=== PATIENT | female | born 1945 | race Caucasian/White ===

== ENCOUNTER → 2017-08-30 | Outpatient (CLI) | payer MEDICARE ==
--- NOTE | 2017-09-01 10:30 | MM ---
Reason for exam: screening (asymptomatic). Last mammogram was performed 2 years and 7 months ago. History: Patient is postmenopausal. Benign excisional biopsy of the left breast, 1996. Took estrogen for 6 months beginning at age 40. Physical Findings: A clinical breast exam by your physician is recommended on an annual basis and results should be correlated with mammographic findings. MG 3D Screening Mammo W/Cad Bilateral CC and MLO view(s) were taken. Prior study comparison: January 21, 2015, left breast MG 3d follow up no charge LT. December 29, 2014, bilateral MG 3d screening mammo w/cad. There are scattered fibroglandular densities. Previous mammotome biopsy in the left breast. No significant changes when compared with prior studies. ASSESSMENT: Negative, BI-RAD 1 RECOMMENDATION: Routine screening mammogram of both breasts in 1 year.
== END | disposition home or self-care (01) ==
LOC: RADMAMWWP 11:11
PROVIDERS: ATTEND Internal Medicine
DX: Z12.31 Encounter for screening mammogram for malignant neoplasm of breast (principal)
CPT/HCPCS: 77063; 77067

== ENCOUNTER 2019-08-21 13:44 | Observation (INO) | payer MEDICARE ==
--- NOTE | 2019-08-21 15:24 | ED ---
General Adult HPI - General Chief complaint: Neuro Symptoms/Deficit Stated complaint: left side face/jaw pain Time Seen by Provider: 08/21/19 14:53 Source: patient, RN notes reviewed, old records reviewed Mode of arrival: ambulatory Limitations: no limitations - History of Present Illness Initial comments: 73 yo presented for evaluation of left-sided facial pain. Patient has history of trigeminal neuralgia she has had worsening pain over the past 3 weeks. She was previously on 100 mg of carbamazepine twice daily and has increased this to 300 mg twice daily. Additionally she is on baclofen which was prescribed by her primary care physician and is uncertain of this dose per she states this is made her quite sleepy. Patient has normal bilateral hand tremor over the past several weeks as well. No focal numbness or weakness. She was sent in by her primary care physician for possible MRI of the brain. - Related Data Home Medications Medication Instructions Recorded Confirmed Amitriptyline HCl 10 mg PO DAILY 01/08/14 01/14/14 Aspirin 81 mg PO DAILY 01/08/14 01/14/14 Jozwxin-Hesh-Tnac [id number] 1 each PO DIRECTED PRN 01/08/14 01/14/14 [Excedrin] Atorvastatin [Lipitor] 20 mg PO DAILY 01/08/14 01/14/14 Calcium Carbonate [Tums] 500 mg PO DIRECTED PRN 01/08/14 01/14/14 Docusate Sodium [Stool Softener] 100 mg PO DAILY PRN 01/08/14 01/14/14 Ergocalciferol [Vitamin D2 50,000 unit PO DIRECTED 01/08/14 01/14/14 (DRISDOL)] Fluticasone/Salmeterol [Advair 2 puff INHALATION BID 01/08/14 01/14/14 250-50 Diskus] Zafirlukast 20 mg PO BID 01/08/14 01/14/14 carBAMazepine [Carbamazepine] 400 mg PO BID 01/08/14 01/14/14 Aspirin EC [Ecotrin] 325 mg PO ONCE 01/14/14 01/14/14 Previous Rx's Medication Instructions Recorded Atorvastatin [Lipitor] 40 mg PO DAILY #60 tab 01/15/14 Clopidogrel [Plavix] 75 mg PO DAILY #90 tab 01/15/14 Metoprolol Tartrate [Lopressor] 25 mg PO DAILY #180 tab 01/15/14 Nitroglycerin Sl Tabs [Nitrostat] 0.4 mg SUBLINGUAL Q5M PRN #25 tab 01/15/14 Oxymetazoline 0.05% Nasl Paulina 3 spray NASAL TID #1 bottle 06/24/14 [Afrin 0.05% Nasal Paulina] Allergies Allergy/AdvReac Type Severity Reaction Status Date / Time No Known Allergies Allergy Verified 08/21/19 14:27 Review of Systems ROS Statement: Those systems with pertinent positive or pertinent negative responses have been documented in the HPI. ROS Other: All systems not noted in ROS Statement are negative. Past Medical History Past Medical History: COPD, Hyperlipidemia, Hypertension, Neurologic Disorder History of Any Multi-Drug Resistant Organisms: None Reported Past Surgical History: Back Surgery, Heart Catheterization With Stent, Tubal Ligation Smoking Status: Never smoker Past Alcohol Use History: Rare Past Drug Use History: None Reported General Exam Limitations: no limitations General appearance: alert, in no apparent distress Head exam: Present: atraumatic, normocephalic Eye exam: Present: normal appearance, PERRL ENT exam: Present: normal exam Neck exam: Present: normal inspection. Absent: tenderness, meningismus Respiratory exam: Present: normal lung sounds bilaterally. Absent: respiratory distress, wheezes Cardiovascular Exam: Present: regular rate, normal rhythm GI/Abdominal exam: Present: soft. Absent: distended, tenderness, guarding Extremities exam: Present: normal inspection, normal capillary refill. Absent: pedal edema, calf tenderness Neurological exam: Present: alert, oriented X3, CN II-XII intact, normal gait. Absent: motor sensory deficit Psychiatric exam: Present: normal affect, normal mood Skin exam: Present: warm, dry, intact. Absent: cyanosis, diaphoretic Course Vital Signs 08/21/19 08/21/19 14:23 17:20 Temperature 98.2 F Pulse Rate 85 80 Respiratory 16 16 Rate Blood Pressure 167/86 167/74 O2 Sat by Pulse 98 99 Oximetry - Reevaluation(s) Reevaluation #1: 08/21/19 15:29 I did discuss this case with the patient's primary care physician Dr. Ramsey she has been treated trigeminal neuralgia but is concerned that the patient has had some mental status changes, increasing confusion and wishes the patient to be admitted for neurology consultation and further workup. EKG Findings - EKG Comments: EKG Findings:: EKG: Sinus rhythm with PVC, rate of 76, CA interval 162, QRS duration 80, QTC 441, no ST segment elevation. Medical Decision Making - Medical Decision Making 73-year-old female presenting for evaluation of altered mental status, worsening trigeminal neuralgia. I did discuss case with her primary care physician who wants her to be admitted for neurology evaluation. She has a nonfocal neurologic exam with stable vitals. She is alert and oriented at the time my evaluation. She has a normal CBC, normal CMP, head CT negative for acute intracranial pathology, no intracranial hemorrhage per chest x-ray negative for acute Norm pulmonary disease. Patient has been admitted to internal medicine with neurology on consult for further evaluation. - Lab Data Result diagrams: 08/21/19 15:15 08/21/19 15:15 Lab Results 08/21/19 08/21/19 08/21/19 Range/Units 15:15 15:15 15:15 WBC 6.2 (3.8-10.6) k/uL RBC 4.40 (3.80-5.40) m/uL Hgb 13.6 (11.4-16.0) gm/dL Hct 43.1 (34.0-46.0) % MCV 97.9 (80.0-100.0) fL MCH 30.9 (25.0-35.0) pg MCHC 31.6 (31.0-37.0) g/dL RDW 12.8 (11.5-15.5) % Plt Count 284 (150-450) k/uL Neutrophils % 66 % Lymphocytes % 19 % Monocytes % 8 % Eosinophils % 4 % Basophils % 1 % Neutrophils # 4.1 (1.3-7.7) k/uL Lymphocytes # 1.2 (1.0-4.8) k/uL Monocytes # 0.5 (0-1.0) k/uL Eosinophils # 0.3 (0-0.7) k/uL Basophils # 0.1 (0-0.2) k/uL PT (9.0-12.0) sec INR (<1.2) APTT (22.0-30.0) sec Sodium 132 L (137-145) mmol/L Potassium 4.1 (3.5-5.1) mmol/L Chloride 97 L (98-107) mmol/L Carbon Dioxide 29 (22-30) mmol/L Anion Gap 6 mmol/L BUN 10 (7-17) mg/dL Creatinine 0.64 (0.52-1.04) mg/dL Est GFR (CKD-EPI)AfAm >90 (>60 ml/min/1.73 sqM) Est GFR (CKD-EPI)NonAf 89 (>60 ml/min/1.73 sqM) Glucose 109 H (74-99) mg/dL Calcium 9.2 (8.4-10.2) mg/dL Total Bilirubin 0.3 (0.2-1.3) mg/dL AST 31 (14-36) U/L ALT 18 (4-34) U/L Alkaline Phosphatase 98 (38-126) U/L Total Creatine Kinase 38 (30-135) U/L CK-MB (CK-2) 0.7 (0.0-2.4) ng/mL CK-MB (CK-2) Rel Index 1.8 Troponin I <0.012 (0.000-0.034) ng/mL Total Protein 6.7 (6.3-8.2) g/dL Albumin 4.2 (3.5-5.0) g/dL 08/21/19 Range/Units 15:15 WBC (3.8-10.6) k/uL RBC (3.80-5.40) m/uL Hgb (11.4-16.0) gm/dL Hct (34.0-46.0) % MCV (80.0-100.0) fL MCH (25.0-35.0) pg MCHC (31.0-37.0) g/dL RDW (11.5-15.5) % Plt Count (150-450) k/uL Neutrophils % % Lymphocytes % % Monocytes % % Eosinophils % % Basophils % % Neutrophils # (1.3-7.7) k/uL Lymphocytes # (1.0-4.8) k/uL Monocytes # (0-1.0) k/uL Eosinophils # (0-0.7) k/uL Basophils # (0-0.2) k/uL PT 9.7 (9.0-12.0) sec INR 0.9 (<1.2) APTT 23.4 (22.0-30.0) sec Sodium (137-145) mmol/L Potassium (3.5-5.1) mmol/L Chloride (98-107) mmol/L Carbon Dioxide (22-30) mmol/L Anion Gap mmol/L BUN (7-17) mg/dL Creatinine (0.52-1.04) mg/dL Est GFR (CKD-EPI)AfAm (>60 ml/min/1.73 sqM) Est GFR (CKD-EPI)NonAf (>60 ml/min/1.73 sqM) Glucose (74-99) mg/dL Calcium (8.4-10.2) mg/dL Total Bilirubin (0.2-1.3) mg/dL AST (14-36) U/L ALT (4-34) U/L Alkaline Phosphatase (38-126) U/L Total Creatine Kinase (30-135) U/L CK-MB (CK-2) (0.0-2.4) ng/mL CK-MB (CK-2) Rel Index Troponin I (0.000-0.034) ng/mL Total Protein (6.3-8.2) g/dL Albumin (3.5-5.0) g/dL Disposition Clinical Impression: AMS (altered mental status) Disposition: ADMITTED IP TO THIS [facility] Condition: Stable Is patient prescribed a controlled substance at d/c from ED?: No Referrals: Rach Ramsey MD [Primary Care Provider] - 1-2 days Decision to Admit Reason: Admit from EC Decision Date: 08/21/19 Decision Time: 18:05
--- NOTE | 2019-08-21 15:44 | CT ---
EXAMINATION TYPE: CT brain wo con DATE OF EXAM: 08/21/2019 COMPARISON: None INDICATION: Left-sided facial pain DLP: 1186.4 mGycm, Automated exposure control for dose reduction was used. CONTRAST: None CT of the brain is performed utilizing 3 mm thick sections through the posterior fossa and 3 mm thick sections through the remaining calvarium. Study is performed within 24 hours of arrival to the hosp ital. No abnormal hyperdensity is present to suggest an acute intracranial hemorrhage. No mass lesion is evident. No acute infarcts are evident. Ventricles and sulci are slightly prominent for the patient age. Paranasal sinuses and mastoid air cells within the [id number] are clear. IMPRESSIONS: 1. Mild age-related atrophy
[2019-08-21 15:51] LABS: Basophils # (A) 0.1 k/uL (0-0.2); Basophils % (A) 1 %; Eosinophils # (A) 0.3 k/uL (0-0.7); Eosinophils % (A) 4 %; HCT 43.1 % (34.0-46.0); HGB 13.6 gm/dL (11.4-16.0); Lymphocytes # (A) 1.2 k/uL (1.0-4.8); Lymphocytes % (A) 19 %; MCH 30.9 pg (25.0-35.0); MCHC 31.6 g/dL (31.0-37.0); MCV 97.9 fL (80.0-100.0); Mean Platelet Volume 7.2; Monocytes # (A) 0.5 k/uL (0-1.0); Monocytes % (A) 8 %; Neutrophils # (A) 4.1 k/uL (1.3-7.7); Neutrophils % (A) 66 %; Platelet Count 284 k/uL (150-450); RDW 12.8 % (11.5-15.5); WBC 6.2 k/uL (3.8-10.6)
--- NOTE | 2019-08-21 15:55 | XR ---
EXAMINATION TYPE: XR chest 2V DATE OF EXAM: 08/21/2019 COMPARISON: Prior chest x-ray 11/28/2013 HISTORY: Left-sided face and jaw pain, left chest pain TECHNIQUE: Frontal and lateral views of the chest are obtained. FINDINGS: There is no focal air space opacity, pleural effusion, or pneumothorax seen. The cardiac silhouette size is stable, heart is borderline enlarged. There is eventration of the hemidiaphragms. Prominent lung volumes are present which may be indicative of underlying COPD. The osseous structure s are intact. IMPRESSION: No acute cardiopulmonary process.
[2019-08-21 15:57] LABS: ALT 18 U/L (4-34); AST 31 U/L (14-36); African American GFR (CKD) >90 (>60 ml/min/1.73 sqM); Albumin 4.2 g/dL (3.5-5.0); Alkaline Phosphatase 98 U/L (38-126); Anion Gap 6 mmol/L; Blood Urea Nitrogen 10 mg/dL (7-17); Calcium 9.2 mg/dL (8.4-10.2); Carbon Dioxide 29 mmol/L (22-30); Chloride 97 mmol/L (98-107); Creatine Kinase 38 U/L (30-135); Glucose 109 mg/dL (74-99); Non-African American GFR(CKD) 89 (>60 ml/min/1.73 sqM); Potassium 4.1 mmol/L (3.5-5.1); Sodium 132 mmol/L (137-145); Total Bilirubin 0.3 mg/dL (0.2-1.3); Total Protein 6.7 g/dL (6.3-8.2)
[2019-08-21 16:03] LABS: INR 0.9 (<1.2); Partial Thromboplastin Time 23.4 sec (22.0-30.0); Prothrombin Time 9.7 sec (9.0-12.0)
[2019-08-21 16:09] LABS: Creatine Kinase MB 0.7 ng/mL (0.0-2.4); Troponin I <0.012 ng/mL (0.000-0.034)
[2019-08-21 18:27] LABS: Appearance,Urine Clear (Clear); Bilirubin,Urine Negative (Negative); Blood,Urine Negative (Negative); Color,Urine Light Yellow; Glucose,Urine (UA) Negative (Negative); Ketones,Urine Negative (Negative); Leukocyte Esterase,Urine Negative (Negative); Nitrite,Urine Negative (Negative); Protein,Urine Negative (Negative); Specific Gravity,Urine 1.005 (1.001-1.035); Urobilinogen,Urine <2.0 mg/dL (<2.0)
[2019-08-21] MEDS ORDERED: ACETAMINOPHEN TAB 325 MG TAB PO PRN (23:12)
[2019-08-21] MEDS ORDERED: SODIUM CHLORIDE 0.9% 1,000 ML IV SCH (23:15)
--- NOTE | 2019-08-22 10:47 | P.CNNES ---
History of Present Illness Consult date: 08/22/19 Requesting physician: Christophe Mcmullen Reason for Consult: Altered mental status History of Present Illness: Patient is a 73-year-old female who has long-standing history of trigeminal neuralgia since 1998 when she was living in [place]. Patient at first was on Neurontin, then was switched to carbamazepine. Patient has been on carbamazepine 200 mg twice a day for number of years and her symptoms were in remission. Patient moved from [place] to [place] in 2004. She was able to slowly wean down dose to carbamazepine ER 100 mg twice a day which she has been also on for number of years. Patient sometimes would have mild numbness like sensation but no pain. She was doing fine until 3 weeks ago when she started having flareup of symptoms. The symptoms came on all of a sudden with full force. The symptoms involve the left lower jaw, and left side of the tongue. The main triggers include talking, eating and drinking and brushing teeth. Patient was seen by her primary physician, who increased the dose of carbamazepine to 200 mg twice a day. She stayed on it for a week and the symptoms were no better, she went up to the 100 mg twice a day, which she has been on for last 2 weeks. She feels the symptoms have improved, and symptoms are not constant, she can sleep without waking up with pain. Patient saw her primary physician, who recommended her to go to ER for neurological evaluation. CT head showed mild age-related atrophy. No acute process. Paranasal sinuses are clear. Chest x-ray showed no acute cardiopulmonary process. EKG shows sinus rhythm with frequent PVCs. Septal infarct, age undetermined. Patient's CBC is normal PT/PTT normal. Sodium 132 potassium 4.1, hepatic panel normal. UA negative. Review of Systems As per HPI. Otherwise completely unremarkable. Denies double vision, loss of vision. Denies hoarseness or throat dysphagia. No chest pain shortness of breath wheezing or cough. No abdominal pain. Patient does have some headaches off and on. She lately has been having some hoarse voice, has COPD. Past Medical History Past Medical History: COPD, Hyperlipidemia, Hypertension, Neurologic Disorder History of Any Multi-Drug Resistant Organisms: None Reported Past Surgical History: Back Surgery, Heart Catheterization With Stent, Tubal Ligation Additional Past Surgical History / Comment(s): breast biopsy Past Anesthesia/Blood Transfusion Reactions: No Reported Reaction Additional Past Anesthesia/Blood Transfusion Reaction / Comment(s): never had a blood transfusion Date of Last Stent Placement:: 2013 Past Psychological History: No Psychological Hx Reported Smoking Status: Never smoker Past Alcohol Use History: Rare Past Drug Use History: None Reported Medications and Allergies Home Medications Medication Instructions Recorded Confirmed Type Amitriptyline HCl 20 mg PO HS 01/08/14 08/21/19 History Aspirin 81 mg PO HS 01/08/14 08/21/19 History Ergocalciferol [Vitamin D2 50,000 unit PO Q28D 01/08/14 08/21/19 History (DRISDOL)] Fluticasone/Salmeterol [Advair 2 puff INHALATION RT-BID 01/08/14 08/21/19 History 250-50 Diskus] Zafirlukast 20 mg PO BID 01/08/14 08/21/19 History Nitroglycerin Sl Tabs [Nitrostat] 0.4 mg SUBLINGUAL Q5M PRN #25 tab 01/15/14 0 08/21/19 Rx [id number]-Ixxs-Ixxx [id number] 1 tab PO DAILY PRN 08/21/19 08/21/19 History [Excedrin] Baclofen 10 mg PO DAILY 08/21/19 08/21/19 History Metoprolol Tartrate [Lopressor] 25 mg PO BID 08/21/19 08/21/19 History Multivitamins, Thera [Multivitamin 1 tab PO DAILY 08/21/19 08/21/19 History (formulary)] Rosuvastatin [Crestor] 10 mg PO Q48H 08/21/19 08/21/19 History carBAMazepine [carBAMazepine ER] 300 mg PO BID 08/22/19 08/22/19 History Allergies Allergy/AdvReac Type Severity Reaction Status Date / Time ciprofloxacin [From Cipro] Allergy Sleepiness Verified 08/21/19 19:05 Physical Examination - Vital Signs Vital Signs: Vital Signs Temp Pulse Pulse Resp BP BP Pulse Ox 08/22/19 08:00 97.6 F 70 18 140/70 100 08/22/19 03:57 97.8 F 66 12 110/72 97 08/22/19 00:21 97.5 F L 68 12 117/66 94 L 08/21/19 21:23 98.1 F 73 12 145/71 97 08/21/19 20:19 98.2 F 80 16 154/80 99 08/21/19 17:20 80 16 167/74 99 08/21/19 14:23 98.2 F 85 16 167/86 98 Intake and Output 08/21/19 08/22/19 08/22/19 22:59 06:59 14:59 Other: Voiding Method Toilet Toilet Weight 51.71 kg On examination patient is an elderly female, in no acute distress. Patient is alert awake oriented to time place and person. Patient knows that it is August 2019 and that she is in [facility] in [place]. Speech and language functions, recent and remote memory normal. Attention and concentration fund of knowledge is adequate. On cranial nerve examination pupils are round and reactive to light, visual cesar are full on confrontation. Extraocular muscles are intact with no nystagmus. Face is symmetric, tongue protrudes the midline. Palatal elevation and sensation normal. Hearing and shoulder shrug normal. Examination of oral cavity revealed some dental filling in the left lower molar teeth but does not appear inflamed. On muscle strength testing there is no pronator drift and the strength is normal in arms and legs distally and proximally. Reflexes are 1+ to 2, and plantars are downgoing. Sensory touch is equal. No ataxia for [id number] testing. Tone and bulk of muscles normal. Gait deferred. No obvious bruit or murmur, peripheral pulses present. Abdomen soft nontender. Chest clear Results - Laboratory Findings CBC and BMP: 08/21/19 15:15 08/21/19 15:15 Abnormal Lab Findings: Abnormal Labs 08/21/19 15:15 Sodium 132 L Chloride 97 L Glucose 109 H Assessment and Plan Assessment: * Acute flareup of trigeminal neuralgia involving the left mandibular division, for last 3 weeks. Patient does have long-standing history of trigeminal neuralgia, was in remission, until recent breakthrough pain. Plan: * Patient is currently taking carbamazepine ER 300 mg twice a day. Her symptoms have improved, but not resolved yet. Still gets symptoms with prolonged talking, eating or drinking. Patient was recommended to change carbamazepine ER to 200 mg 3 times a day. After her symptoms comes in remission, she can slowly wean down to 200 mg twice a day. * We will check Tegretol level to rule out toxicity. * Suggest follow-up with neurologist locally, to manage her trigeminal neuralgia. * Computed tomography scan of the head was reviewed, shows no abnormality. No evidence of paranasal sinus disease. * Neurologically cleared for discharge.
[2019-08-22] MEDS ORDERED: NITROGLYCERIN SL TABS 0.4 MG TAB SUBLINGUAL PRN (11:45)
--- NOTE | 2019-08-22 16:38 | P.HPIM ---
History of Present Illness Patient developed pleasant 73-year-old the female was admitted for altered in the status. Patient has history of present urology which is in remission and the patient started having trigeminal neuralgia symptoms with severe pain tin gling numbness in the V3 segment of trigeminal now. Patient the had uncontrollable pain because of which patient was given given Flexeril for is a for muscle relaxation patient was having some tingling numbness in one set of the tongue as well. Triggers include eating drinking and brushing teeth. After using Flexeril patient the was bit lethargic which is not an expected of although patient is alert oriented 3 when I interviewed the patient patient is not confused. Patient was evaluated by neurology. Patient is on carbamazepine 200 twice a day. As carbamazepine is not a long-acting medication neurology is recommending long-acting Was obtained to take 3 times a day to have better neuropathic pain control. Neurology is not recommending any more evaluation with MRI. Patient will be referred to a neurologist as an outpatient. Patient has a Tegretol levels of 7.5 without any signs or symptoms of Tegretol toxicity. Review of Systems REVIEW OF SYSTEMS: CONSTITUTIONAL: No fever, no malaise, no fatigue. HEENT: No recent visual problems or hearing problems. Denied any sore throat. CARDIOVASCULAR: No chest pain, orthopnea, PND, no palpitations, no syncope. PULMONARY: No shortness of breath, no cough, no hemoptysis. GASTROINTESTINAL: No diarrhea, no nausea, no vomiting, no abdominal pain. NEUROLOGICAL: No headaches, no weakness, no numbness. HEMATOLOGICAL: Denies any bleeding or petechiae. GENITOURINARY: Denies any burning micturition, frequency, or urgency. MUSCULOSKELETAL/RHEUMATOLOGICAL: Denies any joint pain, swelling, or any muscle pain. ENDOCRINE: Denies any polyuria or polydipsia. The rest of the 14-point review of systems is negative. Past Medical History Past Medical History: COPD, Hyperlipidemia, Hypertension, Neurologic Disorder History of Any Multi-Drug Resistant Organisms: None Reported Past Surgical History: Back Surgery, Heart Catheterization With Stent, Tubal Ligation Additional Past Surgical History / Comment(s): breast biopsy Past Anesthesia/Blood Transfusion Reactions: No Reported Reaction Additional Past Anesthesia/Blood Transfusion Reaction / Comment(s): never had a blood transfusion Date of Last Stent Placement:: 2013 Past Psychological History: No Psychological Hx Reported Smoking Status: Never smoker Past Alcohol Use History: Rare Past Drug Use History: None Reported Medications and Allergies Home Medications Medication Instructions Recorded Confirmed Type Amitriptyline HCl 20 mg PO HS 01/08/14 08/21/19 History Aspirin 81 mg PO HS 01/08/14 08/21/19 History Ergocalciferol [Vitamin D2 50,000 unit PO Q28D 01/08/14 08/21/19 History (DRISDOL)] Fluticasone/Salmeterol [Advair 2 puff INHALATION RT-BID 01/08/14 08/21/19 History 250-50 Diskus] Zafirlukast 20 mg PO BID 01/08/14 08/21/19 History Nitroglycerin Sl Tabs [Nitrostat] 0.4 mg SUBLINGUAL Q5M PRN #25 tab 01/15/14 08/21/19 Rx [id number]-Hofb-[id number] [id number] 1 tab PO DAILY PRN 08/21/19 08/21/19 History [Excedrin] Metoprolol Tartrate [Lopressor] 25 mg PO BID 08/21/19 08/21/19 History Multivitamins, Thera [Multivitamin 1 tab PO DAILY 08/21/19 08/21/19 History (formulary)] Rosuvastatin [Crestor] 10 mg PO Q48H 08/21/19 08/21/19 History carBAMazepine [TEGretol XR] 200 mg PO TID #90 tab.er.12h 08/22/19 Rx Allergies Allergy/AdvReac Type Severity Reaction Status Date / Time ciprofloxacin [From Cipro] Allergy Sleepiness Verified 08/21/19 19:05 Physical Exam Vitals: Vital Signs Temp Pulse Pulse Resp BP BP Pulse Ox 08/22/19 08:00 97.6 F 70 18 140/70 100 08/22/19 03:57 97.8 F 66 12 110/72 97 08/22/19 00:21 97.5 F L 68 12 117/66 94 L 08/21/19 21:23 98.1 F 73 12 145/71 97 08/21/19 20:19 98.2 F 80 16 154/80 99 08/21/19 17:20 80 16 167/74 99 Intake and Output 08/22/19 08/22/19 08/22/19 06:59 14:59 22:59 Other: Voiding Method Toilet Toilet PHYSICAL EXAMINATION: GENERAL: The patient is alert and oriented x3, not in any acute distress. Well developed, well nourished. HEENT: Pupils are round and equally reacting to light. EOMI. No scleral icterus. No conjunctival pallor. Normocephalic, atraumatic. No pharyngeal erythema. No thyromegaly. CARDIOVASCULAR: S1 and S2 present. No murmurs, rubs, or gallops. PULMONARY: Chest is clear to auscultation, no wheezing or crackles. ABDOMEN: Soft, nontender, nondistended, normoactive bowel sounds. No palpable organomegaly. MUSCULOSKELETAL: No joint swelling or deformity. EXTREMITIES: No cyanosis, clubbing, or pedal edema. NEUROLOGICAL: Gross neurological examination did not reveal any focal deficits. SKIN: No rashes. Results CBC & Chem 7: 08/21/19 15:15 08/21/19 15:15 Labs: Abnormal Lab Results - Last 24 Hours (Table) 08/21/19 Range/Units 15:15 Sodium 132 L (137-145) mmol/L Chloride 97 L (98-107) mmol/L Glucose 109 H (74-99) mg/dL Thrombosis Risk Factor Assmnt - Choose All That Apply Each Risk Factor Represents 2 Points: Age 61-74 years Thrombosis Risk Factor Assessment Total Risk Factor Score: 2 Thrombosis Risk Factor Assessment Level: Low Risk Assessment and Plan Plan: -Trigeminal neuralgia for which increased the change in the dose of Tegretol and frequency of Tegretol. -Mild lethargy secondary to Flexeril there is no altered mental status patient doesn't have any encephalopathy. Baclofen is being discontinued -COPD without any acute exception x-ray Hyperlipidemia Hypertension
--- NOTE | 2019-08-22 16:39 | P.DS ---
Providers Date of admission: 08/21/19 18:09 Attending physician: Cesar Gayle Consults: 08/21/19 23:05 Consult Physician Routine Consulting Provider: Can Diaz Consult Reason/Comments: AMS Do you want consulting provider notified?: Yes, Notify in am Primary care physician: Rach Ramsey [facility] Course: Please refer to my history of present illness for further details Patient Condition at Discharge: Stable Plan - Discharge Summary Discharge Rx Participant: No New Discharge Prescriptions: New carBAMazepine [TEGretol XR] 200 mg PO TID #90 tab.er.12h Continue Aspirin 81 mg PO HS Ergocalciferol [Vitamin D2 (DRISDOL)] 50,000 unit PO Q28D Fluticasone/Salmeterol [Advair 250-50 Diskus] 2 puff INHALATION RT-BID Zafirlukast 20 mg PO BID Amitriptyline HCl 20 mg PO HS Nitroglycerin Sl Tabs [Nitrostat] 0.4 mg SUBLINGUAL Q5M PRN #25 tab PRN Reason: Chest Pain Metoprolol Tartrate [Lopressor] 25 mg PO BID Uwkdpws-Jiwe-Kanl [id number] [Excedrin] 1 tab PO DAILY PRN PRN Reason: arthritis Multivitamins, Thera [Multivitamin (formulary)] 1 tab PO DAILY Rosuvastatin [Crestor] 10 mg PO Q48H Discontinued Baclofen 10 mg PO DAILY carBAMazepine [carBAMazepine ER] 300 mg PO BID Discharge Medication List Amitriptyline HCl 20 mg PO HS 01/08/14 [History] Aspirin 81 mg PO HS 01/08/14 [History] Ergocalciferol [Vitamin D2 (DRISDOL)] 50,000 unit PO Q28D 01/08/14 [History] Fluticasone/Salmeterol [Advair 250-50 Diskus] 2 puff INHALATION RT-BID 01/08/14 [History] Zafirlukast 20 mg PO BID 01/08/14 [History] Nitroglycerin Sl Tabs [Nitrostat] 0.4 mg SUBLINGUAL Q5M PRN #25 tab 01/15/14 [Rx] Aviwyyu-Alta-Quus [id number] [Excedrin] 1 tab PO DAILY PRN 08/21/19 [History] Metoprolol Tartrate [Lopressor] 25 mg PO BID 08/21/19 [History] Multivitamins, Thera [Multivitamin (formulary)] 1 tab PO DAILY 08/21/19 [History] Rosuvastatin [Crestor] 10 mg PO Q48H 08/21/19 [History] carBAMazepine [TEGretol XR] 200 mg PO TID #90 tab.er.12h 08/22/19 [Rx] Follow up Appointment(s)/Referral(s): Taina Rizzo MD [REFERRING] - 1 Week (Dr. Caruso postal delivery officer stated that she has the patients information and will call the patient with a date and time of appointment for this coming next week.) Rach Ramsey MD [Primary Care Provider] - 3 Days Patient Instructions/Handouts: Trigeminal Neuralgia (DC) Discharge Disposition: HOME SELF-CARE
[2019-08-22] MEDS ORDERED: SYMBICORT 80-4.5 MCG INHALER INHALATION SCH (20:00)
[2019-08-22] MEDS ORDERED: MONTELUKAST 10 MG TAB PO SCH (21:00)
[2019-08-22] MEDS ORDERED: ATORVASTATIN 20 MG TAB PO SCH (21:00)
[2019-08-22] MEDS ORDERED: AMITRIPTYLINE HCL 10 MG TAB PO SCH (21:00)
[2019-08-22] MEDS ORDERED: ASPIRIN 81 MG PO SCH (21:00)
[2019-08-22] MEDS ORDERED: METOPROLOL TARTRATE 25 MG TAB PO SCH (21:00)
[2019-08-23 09:30] VITALS: BP 140/70; PULSE 70; RESP 18; TEMP 97.6
== END 2019-08-22 13:28 | disposition home or self-care (01) ==
LOC: EC 13:44 → 1SOBS 18:09
PROVIDERS: ADMIT Internal Medicine; ATTEND Internal Medicine
DX: G50.0 Trigeminal neuralgia (principal); R25.1 Tremor, unspecified; J44.9 Chronic obstructive pulmonary disease, unspecified; E78.5 Hyperlipidemia, unspecified; I10 Essential (primary) hypertension; T48.1X5A Adverse effect of skeletal muscle relaxants [neuromuscular blocking agents], initial encounter; R53.83 Other fatigue; R41.82 Altered mental status, unspecified; M19.90 Unspecified osteoarthritis, unspecified site; R07.9 Chest pain, unspecified; Z79.82 Long term (current) use of aspirin; Z79.899 Other long term (current) drug therapy; Z95.5 Presence of coronary angioplasty implant and graft; Z88.1 Allergy status to other antibiotic agents; Z11.59 Encounter for screening for other viral diseases
CPT/HCPCS: 99285; 36415; 93005; 80156; 80053; 82550; 82553; 84484; 85025; 85610; 85730; 81003; 71046; 70450; G0378 ×2; U0003

== ENCOUNTER → 2019-11-06 | Outpatient (CLI) | payer MEDICARE | END | disposition home or self-care (01) | LOC: LABWHC1 14:58 | PROVIDERS: ATTEND Internal Medicine | DX: Z20.828 Contact with and (suspected) exposure to other viral communicable diseases (principal) | CPT/HCPCS: U0003; C9803 ==

== ENCOUNTER 2020-03-02 13:43 | Observation (INO) | payer MEDICARE ==
[2020-03-02] MEDS ORDERED: ASPIRIN 81 MG PO STA (14:02)
[2020-03-02] MEDS ORDERED: NITROGLYCERIN OINT 1 INCH/GM PACKET TOPICAL STA (14:02)
[2020-03-02 14:21] LABS: Basophils # (A) 0.1 k/uL (0-0.2); Basophils % (A) 1 %; Eosinophils # (A) 0.3 k/uL (0-0.7); Eosinophils % (A) 4 %; HCT 42.5 % (34.0-46.0); HGB 14.3 gm/dL (11.4-16.0); Lymphocytes # (A) 1.2 k/uL (1.0-4.8); Lymphocytes % (A) 15 %; MCH 32.5 pg (25.0-35.0); MCHC 33.6 g/dL (31.0-37.0); MCV 96.7 fL (80.0-100.0); Mean Platelet Volume 7.6; Monocytes # (A) 0.5 k/uL (0-1.0); Monocytes % (A) 6 %; Neutrophils # (A) 5.6 k/uL (1.3-7.7); Neutrophils % (A) 71 %; Platelet Count 319 k/uL (150-450); RBC 4.39 m/uL (3.80-5.40); RDW 12.3 % (11.5-15.5); WBC 7.8 k/uL (3.8-10.6)
--- NOTE | 2020-03-02 14:26 | XR ---
EXAMINATION TYPE: XR chest 2V DATE OF EXAM: 03/02/2020 COMPARISON: Chest x-ray August 21, 2019 HISTORY: Intermittent chest pain and shortness of breath. TECHNIQUE: Frontal and lateral views of the chest are obtained. FINDINGS: There is chronic parenchymal changes bilaterally including left basilar opacity silhouetti ng portion of left heart border without suspicious new focal air space opacity, pleural effusion, or pneumothorax seen. The cardiac silhouette size is stable and mildly enlarged. The osseous structur es remain intact. IMPRESSION: Chronic changes and mild cardiomegaly without acute pulmonary process.
[2020-03-02 14:41] LABS: INR 0.9 (<1.2); Prothrombin Time 9.8 sec (9.0-12.0)
[2020-03-02 14:42] LABS: ALT 20 U/L (4-34); AST 42 U/L (14-36); African American GFR (CKD) >90 (>60 ml/min/1.73 sqM); Albumin 4.3 g/dL (3.5-5.0); Alkaline Phosphatase 97 U/L (38-126); Anion Gap 6 mmol/L; Blood Urea Nitrogen 13 mg/dL (7-17); Calcium 9.5 mg/dL (8.4-10.2); Carbon Dioxide 30 mmol/L (22-30); Chloride 99 mmol/L (98-107); Glucose 92 mg/dL (74-99); Magnesium 2.2 mg/dL (1.6-2.3); Non-African American GFR(CKD) 86 (>60 ml/min/1.73 sqM); Potassium 4.1 mmol/L (3.5-5.1); Sodium 135 mmol/L (137-145); Total Bilirubin 0.6 mg/dL (0.2-1.3); Total Protein 7.1 g/dL (6.3-8.2)
--- NOTE | 2020-03-02 14:46 | ED ---
General Adult HPI - General Chief complaint: Chest Pain Stated complaint: chest pain Time Seen by Provider: 03/02/20 14:00 Source: patient, EMS, RN notes reviewed, old records reviewed Mode of arrival: EMS Limitations: no limitations - History of Present Illness Initial comments: Is a 74-year-old female with a past medical history significant for an LAD stent. Patient comes in today because Appearance of chest pain that lasts about a half hour . Patient states she's also been somewhat short of breath per patient denies any more chest pain since but she went to see her primary medical care doctor in EKG showed Q waves in the septal leads V1 and V2 and she was sent to the emergency department to be evaluated. Patient denies any symptoms while lying in bed. Patient states she feeds her to self he is short of breath. Patient denies lightheadedness dizziness. Patient denies any recent fever chills or cough per patient denies abdominal pain patient denies nausea vomiting diarrhea. Patient denies any leg swelling or calf tenderness. - Related Data Home Medications Medication Instructions Recorded Confirmed Amitriptyline HCl 10 mg PO HS 01/08/14 03/02/20 Aspirin 81 mg PO HS 01/08/14 03/02/20 Ergocalciferol [Vitamin D2 50,000 unit PO Q30D 01/08/14 03/02/20 (DRISDOL)] Fluticasone/Salmeterol [Advair 2 puff INHALATION RT-BID 01/08/14 03/02/20 250-50 Diskus] Zafirlukast 20 mg PO BID 01/08/14 03/02/20 [id number]-Ynbi-Nsgr [id number] 1 tab PO DAILY PRN 08/21/19 03/02/20 [Excedrin] Metoprolol Tartrate [Lopressor] 25 mg PO BID 08/21/19 03/02/20 Multivitamins, Thera [Multivitamin 1 tab PO DAILY 08/21/19 03/02/20 (formulary)] Rosuvastatin [Crestor] 10 mg PO Q48H 08/21/19 03/02/20 carBAMazepine [TEGretol XR] 200 mg PO BID 03/02/20 03/02/20 Previous Rx's Medication Instructions Recorded Nitroglycerin Sl Tabs [Nitrostat] 0.4 mg SUBLINGUAL Q5M PRN #25 tab 01/15/14 Allergies Allergy/AdvReac Type Severity Reaction Status Date / Time ciprofloxacin [From Cipro] Allergy Sleepiness Verified 03/02/20 14:54 Review of Systems ROS Statement: Those systems with pertinent positive or pertinent negative responses have been documented in the HPI. ROS Other: All systems not noted in ROS Statement are negative. Past Medical History Past Medical History: COPD, Hyperlipidemia, Hypertension, Neurologic Disorder History of Any Multi-Drug Resistant Organisms: None Reported Past Surgical History: Back Surgery, Heart Catheterization With Stent, Tubal Ligation Additional Past Surgical History / Comment(s): breast biopsy Past Anesthesia/Blood Transfusion Reactions: No Reported Reaction Additional Past Anesthesia/Blood Transfusion Reaction / Comment(s): never had a blood transfusion Date of Last Stent Placement:: 2013 Past Psychological History: No Psychological Hx Reported Smoking Status: Never smoker Past Alcohol Use History: Rare Past Drug Use History: None Reported General Exam - General Exam Comments Initial Comments: GENERAL: Patient is well-developed and well-nourished. Patient is nontoxic and well- hydrated and is in no acute distress. ENT: Neck is soft and supple. No significant lymphadenopathy is noted. Oropharynx is clear. Moist mucous membranes. Neck has full range of motion without eliciting any pain. EYES: The sclera were anicteric and conjunctiva were pink and moist. Extraocular movements were intact and pupils were equal round and reactive to light. Eyelids were unremarkable. PULMONARY: Unlabored respirations. Good breath sounds bilaterally. No audible rales rhonchi or wheezing was noted. CARDIOVASCULAR: There is a regular rate and rhythm without any murmurs gallops or rubs. ABDOMEN: Soft and nontender with normal bowel sounds. SKIN: Skin is clear with no lesions or rashes and otherwise unremarkable. NEUROLOGIC: Patient is alert and oriented x3. Cranial nerves II through XII are grossly intact. Motor and sensory are also intact. Normal speech, volume and content. Symmetrical smile. MUSCULOSKELETAL: Normal extremities with adequate strength and full range of motion. No lower extremity swelling or edema. No calf tenderness. LYMPHATICS: No significant lymphadenopathy is noted PSYCHIATRIC: Normal psychiatric evaluation. Limitations: no limitations Course Vital Signs 03/02/20 03/02/20 13:58 14:25 Temperature 97.6 F Pulse Rate 66 74 Respiratory 18 18 Rate Blood Pressure 171/79 144/71 O2 Sat by Pulse 100 99 Oximetry Medical Decision Making - Medical Decision Making EKG shows normal sinus rhythm at 63 bpm MS interval 154 tresses 86 Q-T intervals 432 QTC is 442[address] No ST segment elevation or depression however there is Q waves in V1 and V2. Chest x-ray shows no acute abnormality. I spoke with Dr. Bell agreed to admit the patient admitted the patient I wrote admitting orders. - Lab Data Result diagrams: 03/02/20 14:04 03/02/20 14:04 Lab Results 03/02/20 03/02/20 03/02/20 Range/Units 14:04 14:04 14:04 WBC 7.8 (3.8-10.6) k/uL RBC 4.39 (3.80-5.40) m/uL Hgb 14.3 (11.4-16.0) gm/dL Hct 42.5 (34.0-46.0) % MCV 96.7 (80.0-100.0) fL MCH 32.5 (25.0-35.0) pg MCHC 33.6 (31.0-37.0) g/dL RDW 12.3 (11.5-15.5) % Plt Count 319 (150-450) k/uL MPV 7.6 Neutrophils % 71 % Lymphocytes % 15 % Monocytes % 6 % Eosinophils % 4 % Basophils % 1 % Neutrophils # 5.6 (1.3-7.7) k/uL Lymphocytes # 1.2 (1.0-4.8) k/uL Monocytes # 0.5 (0-1.0) k/uL Eosinophils # 0.3 (0-0.7) k/uL Basophils # 0.1 (0-0.2) k/uL PT 9.8 (9.0-12.0) sec INR 0.9 (<1.2) APTT 22.0 (22.0-30.0) sec Sodium 135 L (137-145) mmol/L Potassium 4.1 (3.5-5.1) mmol/L Chloride 99 (98-107) mmol/L Carbon Dioxide 30 (22-30) mmol/L Anion Gap 6 mmol/L BUN 13 (7-17) mg/dL Creatinine 0.69 (0.52-1.04) mg/dL Est GFR (CKD-EPI)AfAm >90 (>60 ml/min/1.73 sqM) Est GFR (CKD-EPI)NonAf 86 (>60 ml/min/1.73 sqM) Glucose 92 (74-99) mg/dL Calcium 9.5 (8.4-10.2) mg/dL Magnesium 2.2 (1.6-2.3) mg/dL Total Bilirubin 0.6 (0.2-1.3) mg/dL AST 42 H (14-36) U/L ALT 20 (4-34) U/L Alkaline Phosphatase 97 (38-126) U/L Troponin I (0.000-0.034) ng/mL Total Protein 7.1 (6.3-8.2) g/dL Albumin 4.3 (3.5-5.0) g/dL 03/02/20 Range/Units 14:04 WBC (3.8-10.6) k/uL RBC (3.80-5.40) m/uL Hgb (11.4-16.0) gm/dL Hct (34.0-46.0) % MCV (80.0-100.0) fL MCH (25.0-35.0) pg MCHC (31.0-37.0) g/dL RDW (11.5-15.5) % Plt Count (150-450) k/uL MPV Neutrophils % % Lymphocytes % % Monocytes % % Eosinophils % % Basophils % % Neutrophils # (1.3-7.7) k/uL Lymphocytes # (1.0-4.8) k/uL Monocytes # (0-1.0) k/uL Eosinophils # (0-0.7) k/uL Basophils # (0-0.2) k/uL PT (9.0-12.0) sec INR (<1.2) APTT (22.0-30.0) sec Sodium (137-145) mmol/L Potassium (3.5-5.1) mmol/L Chloride (98-107) mmol/L Carbon Dioxide (22-30) mmol/L Anion Gap mmol/L BUN (7-17) mg/dL Creatinine (0.52-1.04) mg/dL Est GFR (CKD-EPI)AfAm (>60 ml/min/1.73 sqM) Est GFR (CKD-EPI)NonAf (>60 ml/min/1.73 sqM) Glucose (74-99) mg/dL Calcium (8.4-10.2) mg/dL Magnesium (1.6-2.3) mg/dL Total Bilirubin (0.2-1.3) mg/dL AST (14-36) U/L ALT (4-34) U/L Alkaline Phosphatase (38-126) U/L Troponin I <0.012 (0.000-0.034) ng/mL Total Protein (6.3-8.2) g/dL Albumin (3.5-5.0) g/dL Disposition Clinical Impression: Chest pain Disposition: ADMITTED IP TO THIS HOSP Referrals: Rach Ramsey MD [Primary Care Provider] - 1-2 days Time of Disposition: 15:20
[2020-03-02] MEDS ORDERED: NITROGLYCERIN SL TABS 0.4 MG TAB SUBLINGUAL PRN ×2 (15:21→15:42)
[2020-03-02] MEDS ORDERED: ENOXAPARIN 40 MG/0.4 ML SYRINGE SQ STA (17:56)
[2020-03-02] MEDS ORDERED: NITROGLYCERIN OINT 1 INCH/GM PACKET TOPICAL SCH (18:00)
[2020-03-02] MEDS ORDERED: TEMAZEPAM 7.5 MG CAP PO PRN (18:06)
--- NOTE | 2020-03-02 18:31 | CONS ---
CONSULTATION This is a 74-year-old lady with a known history of CAD, prior PCI of a superior branch of LAD that was performed by me in 2013. She has noncritical disease of 30% to 40% involving the circumflex and RCA. This lady was doing well from a cardiac standpoint, and in fact she had a negative Lexiscan stress test in July of 2018. However, over the last few months she is suffering from trigeminal neuralgia, and with this she has seen neurologists at [facility] and they are considering surgery. She currently takes carbamazepine, and with this she seems to always have some amount of fogginess and also has a significant element of anxiety. On , February 26, she had an episode when she woke up in the morning, she felt very stumbly, had a headache and then had chest pain that lasted 20 to 30 minutes. Quality of pain seems very atypical. However, she called me yesterday. I spoke to the patient and her . I suggested that pain and her symptoms seemed atypical, but to go to the emergency room if symptoms persist or see her primary doctor in view of her headache, which seemed to be related to trigeminal neuralgia. She went and saw the PCP and there was a question of EKG abnormality, and she was sent to the emergency room. I saw the patient here in the ER and noted that the quality of pain is atypical. The last episode of pain was about 20 to 30 minutes on and her troponins are normal. EKG revealed a sinus mechanism with QS pattern in leads V1 and V2 without any acute findings. She is resting comfortably without symptoms. She is considering trigeminal neuralgia surgery, details of which are not available, at [facility] in early April. At the time of my evaluation she is asymptomatic, resting comfortably. PAST MEDICAL HISTORY: 1. CAD with stenting of a superior branch of LAD in 2013. 2. Hypertension. 3. Hyperlipidemia. 4. Trigeminal neuralgia. 5. History of some underlying mild depression. MEDICATIONS: Her medications at home include Crestor 10 mg every other day, sublingual nitroglycerin p.r.n., Tegretol 200 mg b.i.d., metoprolol tartrate 25 mg b.i.d., amitriptyline 10 mg at bedtime, aspirin 81 mg daily. ALLERGIES: She is ALLERGIC TO CIPRO. PHYSICAL EXAMINATION: On examination, blood pressure is 128/70, pulse rate 70 per minute, regular. HEENT: Unremarkable. Fundus was not examined by me. Neck is supple. There is no JVD. I do not hear any carotid bruit. There is no thyromegaly. Heart exam reveals S1, S2 heard normally. No significant rub, murmur or gallop. Lungs are clear. Abdomen is soft, nontender. Lower extremities reveal normal pulses. No edema. Central nervous system is grossly within normal limits. IMPRESSION: 1. Chest pain. Seems atypical; cannot exclude CAD in a patient with known prior PCI. 2. Hypertension. 3. Hyperlipidemia. 4. Trigeminal neuralgia with recent exacerbation. RECOMMENDATIONS: Her 2 sets of troponins are normal. EKG is unremarkable. I am recommending an echo as well as a dobutamine echo tomorrow. If these studies are normal, she can be discharged. I will reduce the aspirin to 81 mg daily and discontinue nitro paste and also give her one dose of Lovenox 40 mg subcutaneously this evening. I discussed my thoughts in detail with the patient and also called and spoke to her . Thank you very much for the consult. MMODL / IJN: [id number] /
[2020-03-02] MEDS: SYMBICORT 80-4.5 MCG INHALER INHALATION SCH (20:17)
[2020-03-02] MEDS ORDERED: MONTELUKAST 10 MG TAB PO SCH (21:00)
[2020-03-02] MEDS ORDERED: AMITRIPTYLINE HCL 10 MG TAB PO SCH (21:00)
[2020-03-02] MEDS ORDERED: ASPIRIN 81 MG PO SCH (21:00)
[2020-03-02] MEDS: METOPROLOL TARTRATE 25 MG TAB PO SCH (21:26)
--- NOTE | 2020-03-02 22:31 | P.HPIM ---
History of Present Illness H&P Date: 03/02/20 Chief Complaint: Chest Pain Patient is a 74-year-old female with a known history of coronary artery disease status post stent placement in 2013, hypertension, hyperlipidemia, trigeminal neuralgia for the past 19 years which recently got worse and is going for nerve block surgery in the next couple of months presents to ER with complaints of chest pain across the upper chest which started when she got up from bed today morning. Patient felt like tightness around his chest diffusely with shortness of breath. Patient states that she was stumbling. No radiation. No associated nausea vomiting or diaphoresis. No fever no chills. No cough or sputum production. Patient does have on and off leg swelling.. Patient had chest pain on February 26 when she woke up in the morning. Pain lasted for about 20 minutes associate with some headache. Patient contacted his crime lab technician and suggested to go to primary care physician due to headache and trigeminal neuralgia histo ry. Patient was seen by her primary care physician today an EKG was obtained which showed some abnormality and was sent to ER. In the ER EKG showed sinus rhythm. Without any acute ST-T wave changes. Lab data showed troponin x2 -, AST 42 ALT 20 Chest x-ray showed chronic changes and mild cardiomegaly without acute pulmonary process. Review of Systems Constitutional: Patient denies any fever or chills . No generalized weakness or weight loss. Abdomen: Patient denied nausea vomiting and diarrhea and abdominal pain. Cardiovascular: Patient denies any chest pain or short of breath no palpitations. Respiratory: patient denied any cough or sputum production. No shortness of breath Neurologic: Patient denied any numbness or tingling headache. Musculoskeletal: Patient denies any complaints of joint swelling or deformity. Skin: Negative Psychiatric: Negative Endocrine: No heat or cold intolerance. No recent weight gain. Genitourinary: No dysuria or hematuria. All other 14 point ROS negative except the above Past Medical History Past Medical History: COPD, Hyperlipidemia, Hypertension, Neurologic Disorder History of Any Multi-Drug Resistant Organisms: None Reported Past Surgical History: Back Surgery, Heart Catheterization With Stent, Tubal Ligation Additional Past Surgical History / Comment(s): breast biopsy benign Past Anesthesia/Blood Transfusion Reactions: No Reported Reaction Additional Past Anesthesia/Blood Transfusion Reaction / Comment(s): never had a blood transfusion Date of Last Stent Placement:: 2013 Past Psychological History: No Psychological Hx Reported Smoking Status: Never smoker Past Alcohol Use History: Rare Past Drug Use History: None Reported Medications and Allergies Home Medications Medication Instructions Recorded Confirmed Type Amitriptyline HCl 10 mg PO HS 01/08/14 03/02/20 History Aspirin 81 mg PO HS 01/08/14 03/02/20 History Ergocalciferol [Vitamin D2 50,000 unit PO Q30D 01/08/14 03/02/20 History (DRISDOL)] Fluticasone/Salmeterol [Advair 2 puff INHALATION RT-BID 01/08/14 03/02/20 History 250-50 Diskus] Zafirlukast 20 mg PO BID 01/08/14 03/02/20 History Nitroglycerin Sl Tabs [Nitrostat] 0.4 mg SUBLINGUAL Q5M PRN #25 tab 01/15/14 03/02/20 Rx [id number]-Fqox-Xrzb [id number] 1 tab PO DAILY PRN 08/21/19 03/02/20 History [Excedrin] Metoprolol Tartrate [Lopressor] 25 mg PO BID 08/21/19 03/02/20 History Multivitamins, Thera [Multivitamin 1 tab PO DAILY 08/21/19 03/02/20 History (formulary)] Rosuvastatin [Crestor] 10 mg PO Q48H 08/21/19 03/02/20 History carBAMazepine [TEGretol XR] 200 mg PO BID 03/02/20 03/02/20 History Allergies Allergy/AdvReac Type Severity Reaction Status Date / Time ciprofloxacin [From Cipro] Allergy Sleepiness Verified 03/02/20 14:54 Physical Exam Vitals: Vital Signs Temp Pulse Resp BP Pulse Ox 03/02/20 16:09 97.6 F 68 18 125/77 97 03/02/20 15:30 67 14 129/76 03/02/20 15:26 71 18 129/76 96 03/02/20 15:00 71 14 131/84 03/02/20 14:30 73 14 144/71 03/02/20 14:25 74 18 144/71 99 03/02/20 14:00 70 13 171/79 98 03/02/20 13:58 97.6 F 66 18 171/79 100 Intake and Output 03/02/20 03/02/20 03/02/20 06:59 14:59 22:59 Other: Weight 48.988 kg 48.988 kg PHYSICAL EXAMINATION: Patient is lying in the bed comfortably, no acute distress, awake alert and oriented.. HEENT: Normocephalic. Neck is supple. Pupils reactive. Nostrils clear. Oral cavity is moist. Ears reveal no drainage. Neck reveals no JVD, carotid bruits, or thyromegaly. CHEST EXAMINATION: Trachea is central. Symmetrical expansion. Lung cesar clear to auscultation and percussion. CARDIAC: Normal S1, S2 with no gallops. No murmurs ABDOMEN: Soft. Bowel sounds normal. No organomegaly. No abdominal bruits. Extremities: trace pedal edema. No clubbing or cyanosis Neurologically awake, alert, oriented x3 with well-coordinated movements. No focal deficits noted Skin: No rash or skin lesions. Psychiatric: Coperative. Nonsuicidal Musculoskeletal: No joint swelling or deformity. Normal range of motion. Results CBC & Chem 7: 03/02/20 14:04 03/02/20 14:04 Labs: Abnormal Lab Results - Last 24 Hours (Table) 03/02/20 Range/Units 14:04 Sodium 135 L (137-145) mmol/L AST 42 H (14-36) U/L Thrombosis Risk Factor Assmnt - DVT/VTE Prophylaxis DVT/VTE Prophylaxis: Pharmacologic Prophylaxis ordered - Choose All That Apply Any of the Below Risk Factors Present?: Yes Each Factor Represents 1 point: Abnormal pulmonary function (COPD) Other Risk Factors: Yes Each Risk Factor Represents 2 Points: Age 61-74 years Other congenital or acquired thrombophilia - If yes, enter type in comment: No Thrombosis Risk Factor Assessment Total Risk Factor Score: 3 Thrombosis Risk Factor Assessment Level: Moderate Risk Assessment and Plan Assessment: Atypical chest pain with a known history of coronary artery disease. Rule out ACS. Coronary artery disease with history of stent placement to right diagonal in 2013 Trigeminal neuralgia for the past 19 years and recent exacerbation since August 2019. Scheduled for nerve block surgery in the next couple months. Hyperlipidemia DVT prophylaxis Plan: Patient will be continued on telemetry monitoring. Serial EKG and troponin x3. Continue the aspirin and statins. Cardiology was consulted and further recommendations based on the clinical course. Current with home medications including carbamazepine. Discussed with the patient and her at bedside in detail. Time with Patient: Greater than 30
[2020-03-03 04:17] LABS: Cholesterol 167 mg/dL (<200); HDL Cholesterol 88 mg/dL (40-60); LDL Cholesterol,Calculated 68 mg/dL (0-99); Triglycerides 56 mg/dL (<150)
[2020-03-03] MEDS ORDERED: DOBUTamine DRIP for NUC MED 500 MG in DEXTROSE/WATER 1 250ML.BAG IV PRN (07:00)
[2020-03-03] MEDS: SYMBICORT 80-4.5 MCG INHALER INHALATION SCH (08:15)
[2020-03-03 08:28] VITALS: RESP 20; TEMP 98
[2020-03-03] MEDS ORDERED: ASPIRIN 325 MG TAB PO SCH (09:00)
[2020-03-03] MEDS ORDERED: ATORVASTATIN 20 MG TAB PO SCH (09:00)
[2020-03-03] MEDS ORDERED: ASPIRIN 81 MG PO SCH (09:00)
[2020-03-03] MEDS ORDERED: MULTIVITAMINS, THERA 1 EACH TAB PO SCH (09:00)
--- NOTE | 2020-03-03 09:39 | P.PN ---
Subjective This is a pleasant 74-year-old female past medical history significant for coronary artery disease status post PCI of the superior branch of LAD in 2013 with noncritical disease of the circumflex and RCA, hypertension, dyslipidemia and trigeminal neuralgia. She follows in the office with Dr. Armijo. She is seen and examined resting comfortably laying flat in bed in no acute distress. She states this morning when she woke up she felt a vague achy sensation in the midsternal region that lasted less than 5 minutes and subsided on its own. Telemetry tracings have been unremarkable. Blood pressure 124/66 heart rate 64 afebrile maintaining oxygen saturation on room air. Laboratory data reviewed, cardiac enzymes negative 3, LDL 68 and HDL 88. GENERAL: Well-appearing, well-nourished and in no acute distress. NECK: Supple without JVD or thyromegaly. LUNGS: Breath sounds clear to auscultation bilaterally. Respiration equal and unlabored. No wheezes, rales or rhonchi. HEART: Regular rate and rhythm without murmurs, rubs or gallops. S1 and S2 heard. EXTREMITIES: Normal range of motion, no edema. No clubbing or cyanosis. Per ipheral pulses intact. ASSESSMENT Chest pain, atypical Coronary artery disease s/p PCI 2014 Hypertension Dyslipidemia Trigeminal neuralgia PLAN Proceed with dobutamine stress echo as previously ordered. If stress test is normal she can be discharged from a cardiac perspective. Follow up in the office with Dr. Armijo. Nurse Practitioner note has been reviewed, I agree with a documented findings and plan of care. Patient was seen and examined. Objective - Vital Signs Vital signs: Vital Signs Temp 98 F 03/03/20 08:27 Pulse 64 03/03/20 08:27 Resp 20 03/03/20 08:27 BP 124/66 03/03/20 08:27 Pulse Ox 98 03/03/20 08:27 Intake & Output 03/02/20 03/03/20 03/03/20 18:59 06:59 18:59 Intake Total 660 Balance 660 Weight 48.988 kg Intake: Oral 660 Other: Voiding Method Toilet # Voids 1 - Labs CBC & Chem 7: 03/02/20 14:04 03/02/20 14:04 Labs: Abnormal Lab Results - Last 24 Hours (Table) 03/02/20 03/03/20 Range/Units 14:04 03:51 Sodium 135 L (137-145) mmol/L AST 42 H (14-36) U/L HDL Cholesterol 88 H (40-60) mg/dL
[2020-03-03 12:49] VITALS: BP 119/74; PULSE 78
[2020-03-03] MEDS: METOPROLOL TARTRATE 25 MG TAB PO SCH (12:49)
--- NOTE | 2020-03-03 13:54 | ECHOF ---
Referral Reason:Chest pain MEASUREMENTS -------- HEIGHT: 157.5 cm WEIGHT: 45.8 kg BP: RVIDd: 2.9 cm (< 3.3) IVSd: 1.0 cm (0.6 - 1.1) LVIDd: 3.5 cm (3.9 - 5.3) LVPWd: 1.3 cm (0.6 - 1.1) IVSs: 1.5 cm LVIDs: 2.0 cm LVPWs: 1.6 cm LAESV Index (A-L): 37.96 ml/m Ao Diam: 2.8 cm (2.0 - 3.7) AV Cusp: 1.9 cm (1.5 - 2.6) MV EXCURSION: 14.382 mm (> 18.000) MV EF SLOPE: 62 mm/s (70 - 150) EPSS: 0.2 cm MV E Riley: 0.53 m/s MV DecT: 241 ms MV A Riley: 0.66 m/s MV E/A Ratio: 0.80 RAP: 5.00 mmHg RVSP: 32.30 mmHg FINDINGS -------- Sinus rhythm. This was a technically good study. LV size, wall thickness and systolic function are normal, with an EF greater than 55%. The left britany tricular size is normal. The right ventricle is normal in size. LA is moderately dilated 34-39 ml/m2 The right atrial size is normal. There is mild aortic valve sclerosis. There is no evidence of aortic regurgitation. Moderate mitral regurgitation is present. There is moderate mitral valve prolapse. The tricuspid valve appears structurally normal. Mild tricuspid regurgitation present. Right vent ricular systolic pressure is normal at < 35 mmHg. Trace/mild (physiologic) pulmonic regurgitation. The aortic root size is normal. There is a small, generalized pericardial effusion present. CONCLUSIONS -------- 1. LV size, wall thickness and systolic function are normal, with an EF greater than 55%. 2. LA is moderately dilated 34-39 ml/m2 3. There is mild aortic valve sclerosis. 4. Moderate mitral regurgitation is present. 5. There is moderate mitral valve prolapse. 6. Mild tricuspid regurgitation present. 7. Trace/mild (physiologic) pulmonic regurgitation. 8. There is a small, generalized pericardial effusion present. GRINDER: Norma Hua RDCS
--- NOTE | 2020-03-03 14:35 | ECHOS ---
STRESS ECHOCARDIOGRAM DOBUTAMINE STRESS ECHO LUMASON: 0 vial INDICATIONS: Chest pain. MEDICATIONS: BASELINE HEART RATE: 62 BASELINE BLOOD PRESSURE: 138/70 MAXIMUM HEART RATE: 132 MAXIMUM BLOOD PRESSURE: 111/50 85% MPHR: 124 100% MPHR: 146 METS: MAXIMUM STAGE REACHED: TOTAL EXERCISE TIME: CLINICAL INFORMATION: Baseline rhythm is sinus mechanism, rate of 62, normal axis and intervals, poor R progression. Baseline blood pressure 138/70 mmHg. Patient received infusion of dobutamine per protocol, peak rate 132 beats per minute which is equal to 85% maximum predicted heart rate. Peak blood pressure 111/50 mmHg. Electrocardiograph monitoring revealed occasional PVCs. There was a 0.[address]-segment depression in the inferolateral leads. Baseline echocardiogram revealed normal wall motion. At peak infusion, there was normal wall motion augmentation with no hypokinesis or dyskinesis. CONCLUSION: 1. Borderline positive electrocardiograph response to dobutamine infusion with occasional PVCs. 2. Normal stress echocardiogram with no evidence of stress-induced ischemia. MMODL / IJN: [id number] /
== END 2020-03-03 14:40 | disposition home or self-care (01) ==
LOC: EC 13:43 → 1SOBS 15:46
PROVIDERS: ADMIT Internal Medicine; ATTEND Internal Medicine
DX: R07.89 Other chest pain (principal); I25.10 Atherosclerotic heart disease of native coronary artery without angina pectoris; G50.0 Trigeminal neuralgia; I11.9 Hypertensive heart disease without heart failure; J44.9 Chronic obstructive pulmonary disease, unspecified; E78.5 Hyperlipidemia, unspecified; R41.89 Other symptoms and signs involving cognitive functions and awareness; F41.9 Anxiety disorder, unspecified; T42.1X5A Adverse effect of iminostilbenes, initial encounter; F32.9 Major depressive disorder, single episode, unspecified; Z79.82 Long term (current) use of aspirin; Z79.51 Long term (current) use of inhaled steroids; Z79.899 Other long term (current) drug therapy; Z88.1 Allergy status to other antibiotic agents; Z95.5 Presence of coronary angioplasty implant and graft; Z98.51 Tubal ligation status
CPT/HCPCS: 96372; 99285; 36415; 94640 ×2; 93005; 93306; 93351; 80061; 80053; 83735; 84484; 85025; 85610; 85730; 71046; G0378 ×2; J1650

== ENCOUNTER → 2021-11-10 | Outpatient (CLI) | payer MEDICARE ==
--- NOTE | 2021-11-10 15:51 | BD ---
EXAMINATION TYPE: Axial Bone Density DATE OF EXAM: 11/10/2021 COMPARISON: NONE CLINICAL HISTORY: 76 years year old Female. ICD-10 CODE: N95.8 MENOPAUSAL AND PERIMENOPAUSAL DISORDE R Height: 60 Weight: 99.9 FRAX RISK QUESTIONS: Alcohol (3 or more units per day): NO Family History (Parent hip fracture): NO Glucocorticoids (More than 3mos): NO History of Fracture in Adulthood: NO Secondary Osteoporosis: 1. Type 1 Diabetes: NO 2. Hyperthyroidism: NO 3. Menopause before 45: NO 4. Malnutrition: SMALL STATURE 5. Chronic liver disease: NO Rheumatoid Arthritis: NO Current Tobacco Use: NO RISK FACTORS HISTORY OF: Hip Fracture (Right/Left): NO Spine Fracture: NO History of Wrist Fracture: NO Surgery to Spine/Hip(right/left)/Wrist (right/left): LUMBAR SPINE When: 1993 Family History of Osteoporosis: MOTHER Active: YES Diet low in dairy products/other sources of calcium: NO Postmenopausal woman: YES Take estrogen and/or progesterone medications: NO Lost more than 2 inches in height since high school: YES Frequent falls: NO Poor Health: NO Hyperparathyroidism: NO Adrenal Insufficiency: NO MEDICATIONS: Prednisone or other steroids: ZAFIRLUKAST FOR COPD How Long: PAST 25 YEARS Thyroid Medications: NO Osteoporosis Medications: NO Additional Medications: CHOLESTEROL MEDS, ADVAIR INHALER, REFLUX MEDS, DEPRESSION MEDS, MULTI VIT., B IOTIN, VIT D, MAGNESIUM, EXAM MEASUREMENTS: Bone mineral density about the R hip (g/cm2): 0.588 Bone mineral density about the L hip (g/cm2): 0.629 T Score values are as follows: -----R Neck: -3.2 -----L Neck: -2.9 -----R Total: -3.1 -----L Total: -2.9 BASELINE STUDY Bone mineral density about the L Wrist (g/cm2): 0.210 T Score values are as follows: -----Dist. R+U: -5.6 -----Prox. R+U: -4.1 -----Radius total: -5.1 BASELINE STUDY FRAX%s: The graph provided illustrates a 21.4% chance for a major osteoporotic fx and a 9.7% chance f or the hips probability for fx in 10 years time. IMPRESSION: Osteoporosis (T Score less than -2.5). There is increased fracture risk and therapy is usually indicated based on age. Re-Screen 1-2 years. NOTE: T-SCORE=SD OF THE YOUNG ADULT MEAN.
--- NOTE | 2021-11-11 08:19 | MM ---
Reason for Exam: Screening (asymptomatic). Last mammogram was performed 4 year(s) and 2 month(s) ago. Patient History: Menarche at age 13. First Full-Term at age 20. Postmenopausal. Patient has history of breast feeding. Estrogen for 6 months starting at age 40. 1997, Benign Excisional Biopsy on the left side. Risk Values: [place] 5 year model risk: 1.9%. NCI Lifetime model risk: 3.8%. Prior Study Comparison: 12/29/2014 Bilateral Screening Mammogram, [facility]. 01/21/2015 Left Diagnostic Mammogram, [facility]. 08/30/2017 Bilateral Screening Mammogram, [facility]. Tissue Density: There are scattered fibroglandular densities. Findings: Analyzed By CAD. There is no suspicious group of microcalcifications or new suspicious mass in either breast. Overall Assessment: Negative, BI-RAD 1 Management: Screening Mammogram of both breasts in 1 year. A clinical breast exam by your physician is recommended on an annual basis and results should be correlated with mammographic findings. Electronically signed and approved by: Kojo Madrigal M.D. Radiologis
== END | disposition home or self-care (01) ==
LOC: RADMAMWWP 12:40
PROVIDERS: ATTEND Internal Medicine
DX: Z12.31 Encounter for screening mammogram for malignant neoplasm of breast (principal); N95.8 Other specified menopausal and perimenopausal disorders
CPT/HCPCS: 77063; 77067; 77080